=== PATIENT | female | born 1945 | race Caucasian/White ===

== ENCOUNTER 2022-04-04 08:11 | Outpatient (CLI) | payer MEDICARE, SELFPAY | END 2022-04-04 08:12 | disposition home or self-care (01) | PROVIDERS: PCP Family Medicine | DX: C71.9 Malignant neoplasm of brain, unspecified (principal) | CPT/HCPCS: 80053; 85025 ==

== ENCOUNTER 2022-06-14 14:38 | Outpatient (CLI) | payer MEDICARE, SELFPAY ==
[2022-06-14 22:24] LABS: Vitamin B12* 569 pg/mL (243-894)
== END 2022-06-14 14:39 | disposition home or self-care (01) ==
LOC: FRMREF 14:38
PROVIDERS: PCP Family Medicine; Visit Provider Family Medicine
DX: D51.0 Vitamin B12 deficiency anemia due to intrinsic factor deficiency (principal)
CPT/HCPCS: 82607

== ENCOUNTER 2022-06-14 21:40 | Outpatient (RCR) | payer MEDICARE, SELFPAY ==
[2022-06-14 22:20] LABS: Hemoglobin* 11.3 gm/dL (12.0-16.0); Red Blood Count 3.52 m/uL (4.00-5.20); White Blood Count* 4.51 K/uL (4.50-11.00)
[2022-06-14 22:21] LABS: Hematocrit 35.2 % (33.0-51.0); Mean Corpuscular HGB Conc 32 gm/dL (32-36); Mean Corpuscular Hemoglobin 32 pg (26-34); Mean Corpuscular Volume 100 fL (80-100)
[2022-06-14 22:22] LABS: Platelet Count* 138 K/uL (140-440)
[2022-06-14 22:23] LABS: Basophils Percent Auto 0.2 % (0.0-3.0); Eosinophils Percent Auto 1.8 % (0.0-7.0); Immature Granulocytes Pct Auto 0.7 %; Lymphocytes Percent Auto 13.7 % (20-44); Monocytes Percent Auto 12.2 % (0.0-11.0); Neutrophils Percent Auto 71.4 % (42.0-72.0)
[2022-06-14 22:24] LABS: Slide Review Reflex No
[2022-08-31 12:46] LABS: Basophils Percent Auto 0.7 % (0.0-3.0); Eosinophils Percent Auto 2.3 % (0.0-7.0); Hematocrit 34.7 % (33.0-51.0); Hemoglobin* 11.1 gm/dL (12.0-16.0); Immature Granulocytes Pct Auto 0.2 %; Lymphocytes Percent Auto 16.1 % (20-44); Mean Corpuscular HGB Conc 32 gm/dL (32-36); Mean Corpuscular Hemoglobin 32 pg (26-34); Mean Corpuscular Volume 100 fL (80-100); Monocytes Percent Auto 11.9 % (0.0-11.0); Neutrophils Percent Auto 68.8 % (42.0-72.0); Red Blood Count 3.47 m/uL (4.00-5.20)
[2022-08-31 13:03] LABS: Platelet Count* 103 K/uL (140-440); Slide Review Reflex No; White Blood Count* 4.46 K/uL (4.50-11.00)
== END 2023-06-06 11:50 | disposition home or self-care (01) ==
LOC: LAB 21:40
PROVIDERS: PCP Family Medicine
DX: C71.9 Malignant neoplasm of brain, unspecified (principal)
CPT/HCPCS: 36415; 85025

== ENCOUNTER 2022-07-26 13:21 | Outpatient (CLI) | payer MEDICARE, SELFPAY ==
[2022-07-26 22:10] LABS: Cholesterol* 135 mg/dL (90-199); HDL Cholesterol* 62 mg/dL (>=50); LDL Cholesterol Calculated 58 mg/dL (<100); Triglycerides* 73 mg/dL (40-149)
[2022-07-26 22:47] LABS: Vitamin B12* 620 pg/mL (243-894)
== END 2022-07-26 13:22 | disposition home or self-care (01) ==
PROVIDERS: PCP Family Medicine; Visit Provider Family Medicine
DX: E78.5 Hyperlipidemia, unspecified (principal); K31.819 Angiodysplasia of stomach and duodenum without bleeding; E10.9 Type 1 diabetes mellitus without complications; I10 Essential (primary) hypertension; E78.00 Pure hypercholesterolemia, unspecified; D64.9 Anemia, unspecified
CPT/HCPCS: 80061; 82607

== ENCOUNTER 2022-08-02 10:59 | Outpatient (CLI) | payer MEDICARE, SELFPAY ==
[2022-08-02 22:30] LABS: Iron* 123 ug/dL (37-170)
== END 2022-08-02 11:00 | disposition home or self-care (01) ==
PROVIDERS: PCP Family Medicine; Visit Provider Family Medicine
DX: D64.9 Anemia, unspecified (principal)
CPT/HCPCS: 82728; 83540